=== PATIENT | female | born 1955 | race Caucasian/White ===

== ENCOUNTER 2016-09-05 05:52 | Day surgery (SDC) | payer OTHER ==
[2016-09-05] VITALS (13 sets, daily range): BP systolic 120–147; BP diastolic 80–91; PULSE 58–75; RESP 14–29; Ht 162.6 cm; Wt 58.0 kg
[~2016-09-05] VITALS: Ht 162.6 cm; Wt 58.0 kg
[~2016-09-05 05:52] MED LIST: CIPR500T4 PO; HYDR-902 PO; METR500T PO; PANT40TA4 PO
[2016-09-05 06:50] LABS: ADD SCAN DIFF NO
[2016-09-05] MEDS ORDERED: OMEP20CA16 PO (06:53)
[2016-09-05] MEDS ORDERED: LISI2.5T59 PO (06:53)
[2016-09-05] MEDS ORDERED: CEFAZOLIN 2 GM/50 ML (PMX) 50 ML IVPB SCH (07:00)
[2016-09-05] MEDS ORDERED: SOD CHLORIDE 0.9% 1,000 ML IV SCH (07:00)
[2016-09-05 07:04] LABS: BASOPHILS % 0.6 % (0.0-2.0); EOSINOPHILS # 0.2 10^3/ul (0.0-0.5); EOSINOPHILS % 3.2 % (0.0-7.0); HEMOGLOBIN 11.2 g/dl (12.0-16.0); LYMPHOCYTES # 1.8 10^3/ul (0.8-2.9); LYMPHOCYTES % 34.2 % (15.0-51.0); MEAN CORPUSCULAR HEMOGLOBIN 27.7 pg (29.0-33.0); MEAN CORPUSCULAR VOLUME 86.4 fl (82.0-101.0); MEAN PLATELET VOLUME 10.5 fl (7.4-10.4); MONOCYTE # 0.4 10^3/ul (0.3-0.9); MONOCYTES % 7.9 % (0.0-11.0); NEUTROPHIL # 2.9 10^3/ul (1.6-7.5); NEUTROPHILS % 53.9 % (39.0-77.0); PLATELET COUNT 220 10^3/UL (140-415); RED BLOOD COUNT 4.05 10^6/ul (4.20-5.40); RED CELL DISTRIBUTION WIDTH 15.4 % (11.5-14.5); WHITE BLOOD COUNT 5.3 10^3/ul (4.8-10.8)
[2016-09-05] MEDS ORDERED: BUPIVACAINE 0.25% (MPF) 30 ML INJ ONE (07:15)
[2016-09-05 07:16] LABS: INR 0.89; PARTIAL THROMBOPLASTIN TIME 31.4 Sec (25.0-35.0); PT RATIO 0.9
[2016-09-05 07:21] LABS: ALBUMIN 3.9 g/dl (3.3-4.9); ALBUMIN/GLOBULIN RATIO 1.3; BILIRUBIN,INDIRECT 0.1 mg/dl (0-1.1); BILIRUBIN,TOTAL 0.1 mg/dl (0.2-1.3); TOTAL PROTEIN 6.9 g/dl (6.1-8.1)
[2016-09-05] MEDS ORDERED: FENTAnyl 50 MCG/ML VIAL ONE (07:40)
[2016-09-05] MEDS ORDERED: SUCCINYLCHOLINE CHLORIDE 100 MG/5 ML SYG IV ONE (07:57)
[2016-09-05] MEDS ORDERED: LIDOCAINE 2% (SDV) 5 ML INJ ONE (07:57)
[2016-09-05] MEDS ORDERED: CEFAZOLIN 1 GM INJ ONE (07:57)
[2016-09-05] MEDS ORDERED: PROPOFOL 20 ML ONE (07:57)
[2016-09-05] MEDS ORDERED: ROCURONIUM 50 MG INJ ONE (07:57)
[2016-09-05 08:04] LABS: CALCIUM 9.3 mg/dl (8.4-10.2); CREATININE 0.82 mg/dl (0.44-1.00); POTASSIUM 3.9 mmol/L (3.5-5.1)
[2016-09-05] MEDS ORDERED: BACITRACIN/POLYMYXIN 28.35 GM OINT TOP ONE (08:22)
[2016-09-05] MEDS ORDERED: MEPERIDINE 25 MG INJ IV PRN (08:30)
[2016-09-05] MEDS ORDERED: METOCLOPRAMIDE 10 MG INJ IV PRN (08:30)
[2016-09-05] MEDS ORDERED: ONDANSETRON 4 MG INJ IV PRN (08:30)
[2016-09-05] MEDS ORDERED: HYDROCODONE/APAP (5/325) TAB PO ONE (08:30)
[2016-09-05] MEDS ORDERED: DIPHENHYDRAMINE 50 MG INJ IV PRN (08:30)
[2016-09-05] MEDS ORDERED: FENTAnyl 50 MCG/ML VIAL IV PRN ×2 (08:30)
[2016-09-05] MEDS ORDERED: HYDROmorphONE (0.2 MG/ML) 10ML SYG IV PRN ×3 (08:30)
[2016-09-05] MEDS ORDERED: SUGAMMADEX SODIUM 200 MG/2 ML VIAL IV ONE (08:32)
--- NOTE | 2016-09-05 08:33 | OPR ---
Date/Time of Note Date/Time of Note DATE: 09/05/16 TIME: 08:27 Operative Report Procedure Date: Sep 05, 2016 Preoperative Diagnosis posterior scalp mass x 3 Postoperative Diagnosis same Operation Performed 1. excision of posterior super scalp mass with 3 cm incision and 3 cm mass 2. excision of right posterior inferior scalp mass with 2 cm incision and 2 cm mass 3. excision of left posterior inferior scalp mass with 3 cm incision and 2 cm mass 4. localized adjacent tissue transfer with the use of skin flaps 16 sq cm defect 5. therapeutic [place] [address] Surgeon: Sharmila RUIZ Specimens superior posterior scalp mass inferior right posterior scalp mass inferior left posterior scalp mass Indications This is a 61-year-old female with 3 posterior scalp masses. She required surgical excision. Risks alternatives benefits and percent were discussed the patient. Potential complications including but not limited to bleeding infection scar alopecia and recurrence of masses were discussed the patient patient expresses understanding and consents to the operation. Procedure Description Patient is taken to the OR and prepped and draped in usual sterile fashion surgical timeout was performed IV antibiotics given. 15 blade is used to make a transverse incision over the posterior superior mass dissection cautery was carried out the mass and circumferentially excised due to tissue defect localized adjacent tissue transfer with use of skin flaps was performed multilayer closure with interrupted and running 3-0 Vicryl. Subcutaneous Marcaine is injected into the surgical site. Right posterior inferior mass is then addressed in a similar fashion. Transverse incision is made with a 15 blade. Dissection cautery was carried down to the mass was circumferentially excised. Due to tissue defect localized adjacent tissue transfer to the skin flaps was performed closures with a running 3-0 Vicryl. Therapeutic subcutaneous Marcaine is injected into this site. Attention was then paid to the left posterior inferior mass. Transverse incision is made with a 15 blade. Dissection cautery was carried out the mass and circumferentially excised. There is good hemostasis. Running 3-0 Vicryl was used due to tissue defect to close the wound. Subcutaneous Marcaine is injected therapeutically. There is good hemostasis in all surgical sites. Antibiotic ointment is applied. Sharmila RUIZ Sep 05, 2016 08:32
--- NOTE | 2016-09-05 08:39 | RADRPT ---
PROCEDURE: Chest Radiograph. CLINICAL INDICATION: Preop TECHNIQUE: Single frontal chest radiograph. COMPARISON: None available FINDINGS: The cardiomediastinal silhouette is within normal limits. No infiltrate or effusion is seen. Th e bones are intact. IMPRESSION: 1. Unremarkable chest radiograph. RPTAT: KK .Mayur Quinones MD, MD Date Time Electronically viewed and signed by .Mayur Quinones MD, on 09/05/2016 08:39 .B/
--- NOTE | 2016-09-05 21:05 | RADRPT ---
Vent Rate: 51 bpm RR Interval: 0 msec CO Interval: 122 msec QRS Duration: 82 msec QT Interval: 468 msec QTC Interval: 431 msec P-R-T [place]: 19 - 20 - 29 degrees Sinus bradycardia Otherwise normal ECG Electronically Signed By: John Damian [id number]
== END 2016-09-05 10:00 | disposition home or self-care (01) ==
LOC: SDS 05:52
PROVIDERS: ATTEND Surgery
DX: L72.11 Pilar cyst (principal); I10 Essential (primary) hypertension; E78.5 Hyperlipidemia, unspecified
CPT/HCPCS: 14021; 71010; 80053; 85025; 85610; 85730; 88307; 93005; J0690; J3010; J7999; Z7512; Z7610

== ENCOUNTER 2016-10-23 08:02 | Day surgery (SDC) | payer OTHER ==
[~2016-10-23] VITALS: Ht 157.5 cm; Wt 57.9 kg
[~2016-10-23 08:02] MED LIST changes: -CIPR500T4 PO; -HYDR-902 PO; +LISI2.5T59 PO; -METR500T PO; +OMEP20CA16 PO; -PANT40TA4 PO
[2016-10-23] MEDS ORDERED: IBUPROFEN (08:50)
[2016-10-23 08:51] VITALS: Ht 157.5 cm; Wt 57.9 kg
[2016-10-23] MEDS ORDERED: FENTAnyl 50 MCG/ML VIAL ONE (10:00)
[2016-10-23] MEDS ORDERED: MIDAZOLAM 1 MG/ML 2 ML INJ ONE ×3 (10:00→10:01)
--- NOTE | 2016-10-23 10:01 | OPPN ---
Date/Time of Note Date/Time of Note DATE: 10/23/16 TIME: 09:58 Operative Report Preoperative Diagnosis screening Postoperative Diagnosis diverticulosis hemorrhoids Operation/Procedure Performed colonoscopy Provider: MARIJA JENNINGS MD Anesthesia Type: moderate sedation Estimated blood loss: none Transfusion Required: no Specimen: none Grafts/Implants: none Complications: no MARIJA JENNINGS MD Oct 23, 2016 10:01
[2016-10-23 10:14] VITALS: BP 145/87; RESP 14
--- NOTE | 2016-10-23 10:19 | GILP ---
DATE OF PROCEDURE: 10/23/2016 PREOPERATIVE DIAGNOSIS: Screening colonoscopy. POSTOPERATIVE DIAGNOSES: 1. Colonoscopy all the way to the cecum. 2. Extensive diverticulosis of the sigmoid colon. 3. Internal hemorrhoids. 4. No colon neoplasm was identified. PROCEDURE PERFORMED: Colonoscopy. INDICATION: Ms Josefina Chen is a 61-year-old female patient who was scheduled for screening colonoscopy. The procedure and possible complications were well explained to the patient. She understood and consented to the procedure. DESCRIPTION OF PROCEDURE: Under the influence of fentanyl and Versed, the colonoscope was carefully introduced in the rectum. Under direct vision, it was advanced all the way to the cecum. FINDINGS: The patient had extensive diverticulosis of the sigmoid colon. The patient also had internal hemorrhoids. No colon neoplasm was identified. She tolerated the procedure very well. There was no complication from the procedure. At the end of procedure, she was awake with stable vital signs and she was discharged home in care of her family. IMPRESSION: Please see postop diagnoses. PLAN: Next screening colonoscopy in 10 years. Dictated By: MD ANNABELLA Bonds/sonali/nathan /Document#: [id number]
== END 2016-10-23 13:41 | disposition home or self-care (01) ==
LOC: GIL 08:02
PROVIDERS: ATTEND Internal Medicine Gastroenterology
DX: Z12.11 Encounter for screening for malignant neoplasm of colon (principal); K57.90 Diverticulosis of intestine, part unspecified, without perforation or abscess without bleeding; K64.8 Other hemorrhoids; I10 Essential (primary) hypertension
CPT/HCPCS: 45378; J2250; J3010; Z7610

== ENCOUNTER 2018-09-09 15:23 | Emergency (ER) | payer MEDICARE, OTHER ==
[~2018-09-09] VITALS: Ht 162.6 cm; Wt 57.2 kg
[~2018-09-09 15:23] MED LIST changes: +IBUPROFEN
[2018-09-09 15:47] VITALS: Ht 162.6 cm; Wt 57.2 kg
[2018-09-09] MEDS ORDERED: SOD CHLORIDE 0.9% 1,000 ML IV STA (17:12)
[2018-09-09] MEDS ORDERED: OMEP20CA16 PO (17:50)
[2018-09-09] MEDS ORDERED: LOSA25TA12 PO (17:50)
[2018-09-09] MEDS ORDERED: ALBU18HF INHALATION (17:50)
[2018-09-09] MEDS ORDERED: FLUT1AER INHALATION (17:51)
[2018-09-09] MEDS ORDERED: GABA300C16 PO (17:51)
[2018-09-09] MEDS ORDERED: ADV10050 INHALATION (17:52)
[2018-09-09] MEDS ORDERED: SOD CHLORIDE 0.9% 100 ML ONE (18:57)
[2018-09-09] MEDS ORDERED: IOHEXOL 300MG/ML 150 ML BTL ONE (18:57)
--- NOTE | 2018-09-09 18:58 | ERD ---
ER Documentation Chief Complaint Chief Complaint mid AP, rectal bleed since Sun. clinic ref to r/o diverticulitis. hx hemorr HPI This is a 63-year-old female with past medical history of hypertension and diverticulosis. The patient indicates for the past 4 days she is been having severe pain in her left lower quadrant. The pain is a sharp shooting pain. It initially started around the mid abdomen 4 days ago but has progressively worsened and moved to the left lower quadrant. The patient also indicates at the onset of her symptoms 4 days ago she noticed dark red clots coming from her rectum when attempting to have a bowel movement. Since then she noticed loose stools. However she states the rectal bleeding has subsided. Her last episode of diverticulitis was roughly 1 year ago. She stated she was unable to get in s ooner as she was out of town. She denies any weakness. ROS All systems reviewed and are negative except as per history of present illness. Medications Home Meds Reported Medications Salmeterol Xinaf-Fluticasone* (Advair*) 100/50 Diskus Inhaler, 1 INH INHALATION BID, #1 INHALER 09/09/18 Fluticasone-Vilanterol (Breo Ellipta Inhaler) 100-25 Mcg/Actuation Aer.pow.ba, 1 PUFF INHALATION DAILY, #1 INHALER 09/09/18 Gabapentin* (Gabapentin*) 300 Mg Capsule, 300 MG PO TID, #90 CAP 09/09/18 Albuterol Sulfate* (Ventolin HFA*) 18 Gm Hfa.aer.ad, 2 PUFF INHALATION Q6H, #1 INHALER 09/09/18 Losartan Potassium* (Losartan Potassium*) 25 Mg Tablet, 25 MG PO DAILY, TAB 09/09/18 Omeprazole* (Omeprazole*) 20 Mg Capsule.dr, 20 MG PO BID, #60 CAP 09/09/18 Discontinued Reported Medications [Ibuprofen] No Conflict Check 10/23/16 Lisinopril* (Lisinopril*) 2.5 Mg Tablet, 2.5 MG PO DAILY, #30 TAB 09/05/16 Omeprazole* (Omeprazole*) 20 Mg Capsule.dr, 20 MG PO DAILY, #30 CAP 09/05/16 Allergies Allergies: Coded Allergies: No Known Allergy (Unverified , 09/09/18) PMhx/Soc History of Surgery: Yes (OCCIPITAL CYST REMOVAL ) Anesthesia Reaction: No Hx Neurological Disorder: No Hx Respiratory Disorders: No Hx Cardiac Disorders: Yes (HTN) Hx Psychiatric Problems: Yes (ANXIETY) Hx Miscellaneous Medical Probl: Yes (DIVERTICULITIS) Hx Alcohol Use: No Hx Substance Use: No Hx Tobacco Use: No Smoking Status: Never smoker Physical Exam Vitals Vital Signs Date Temp Pulse Resp B/P (MAP) Pulse Ox O2 O2 Flow FiO2 Time Delivery Rate 09/09/18 66 20 164/83 99 Room Air 18:23 (110) 09/09/18 77 18 155/95 99 Room Air 17:45 (115) 09/09/18 99.1 73 16 127/84 99 15:47 (98) Physical Exam Constitutional:Well-developed. Well-nourished. HEENT:Normocephalic. Atraumatic.Pupils were equal round reactive to light. Moist mucous membranes.No tonsillar exudates. No conjunctival pallor Neck: No nuchal rigidity. No lymphadenopathy. No posterior cervical spine tenderness or step-offs. Respiratory: Not using accessory muscles of respiration.Lungs were clear to auscultation bilaterally. No rhonchi. No rales. No wheezing. Cardiovascular: Regular rate regular rhythm.No murmurs. No rubs were appreciated.S1, S2 normal. Distal pulses are palpable 2+ bilaterally. GI: Abdomen was soft. Left lower quadrant tenderness. Non Distended. No pulsatile abdominal masses or bruits. No rebound. No guarding. Bowel sounds were present and normal. Muscle skeletal: Full range of motion of both the upper and lower extremities bilaterally.Normal muscle tone.No assymetrical calf tenderness or swelling. Skin: No petechia, no purpura. No lesions on the palms or the soles of the feet. No maculopapular rash. NEURO: Patient was alert, awake, orientated x3.No facial droop. Gait observed and normal with no ataxia.Speech had regular rate and rhythm. No focal ne urological deficits. Result Diagram: 09/09/18 1724 09/09/18 1724 Results 24 hrs Laboratory Tests Test 09/09/18 17:24 White Blood Count 5.9 10^3/ul Red Blood Count 4.05 10^6/ul Hemoglobin 11.7 g/dl Hematocrit 36.7 % Mean Corpuscular Volume 90.6 fl Mean Corpuscular Hemoglobin 28.9 pg Mean Corpuscular Hemoglobin Concent 31.9 g/dl Red Cell Distribution Width 14.7 % Platelet Count 238 10^3/UL Mean Platelet Volume 9.8 fl Immature Granulocytes % 0.300 % Neutrophils % 49.9 % Lymphocytes % 40.3 % Monocytes % 7.3 % Eosinophils % 1.7 % Basophils % 0.5 % Nucleated Red Blood Cells % 0.0 /100WBC Immature Granulocytes # 0.020 10^3/ul Neutrophils # 2.9 10^3/ul Lymphocytes # 2.4 10^3/ul Monocytes # 0.4 10^3/ul Eosinophils # 0.1 10^3/ul Basophils # 0.0 10^3/ul Nucleated Red Blood Cells # 0.0 10^3/ul Prothrombin Time 12.0 Sec Prothrombin Time Ratio 0.9 INR International Normalized Ratio 0.88 Activated Partial Thromboplast Time 31.8 Sec Sodium Level 141 mmol/L Potassium Level 3.8 mmol/L Chloride Level 105 mmol/L Carbon Dioxide Level 27 mmol/L Anion Gap 9 Blood Urea Nitrogen 8 mg/dl Creatinine 0.81 mg/dl Est Glomerular Filtrat Rate mL/min > 60 mL/min Glucose Level 93 mg/dl Calcium Level 9.9 mg/dl Total Bilirubin 0.4 mg/dl Direct Bilirubin 0.00 mg/dl Indirect Bilirubin 0.4 mg/dl Aspartate Amino Transf (AST/SGOT) 33 IU/L Alanine Aminotransferase (ALT/SGPT) 23 IU/L Alkaline Phosphatase 94 IU/L Troponin I < 0.012 ng/ml Total Protein 8.3 g/dl Albumin 4.6 g/dl Globulin 3.70 g/dl Albumin/Globulin Ratio 1.24 Amylase Level 82 U/L Lipase 72 U/L Current Medications Medications Dose Sig/Kimberly Start Time Status Last (Trade) Ordered Route PRN Stop Time Admin Dose Reason Admin Sodium 1,000 ml @ Q1H STAT 09/09/18 DC 09/09/18 Chloride 1,000 mls/hr IV 17:12 17:40 09/09/18 18:11 IV Flush 10 ml STK-MED 09/09/18 DC (NS 10 ml) ONCE .ROUTE 18:57 09/09/18 18:58 Sodium 100 ml @ ud STK-MED 09/09/18 DC Chloride ONCE .ROUTE 18:57 09/09/18 18:58 Iohexol 150 ml STK-MED 09/09/18 DC (Omnipaque ONCE .ROUTE 18:57 300mg/ ml) 09/09/18 18:58 Morphine 4 mg ONCE STAT 09/09/18 DC 09/09/18 Sulfate IV 20:20 20:28 (morphine) 09/09/18 20:21 Ondansetron 4 mg ONCE STAT 09/09/18 DC 09/09/18 HCl (Zofran IV 20:20 20:29 Inj) 09/09/18 20:21 Procedures/MDM This patient presented to the emergency department with abdominal pain and was seen and evaluated by myself. My differential diagnosis included but was not limited to abdominal aortic aneurysm, appendicitis, pancreatitis, perforated peptic ulcer, perforated viscus, Boerhaaves syndrome or visceral pain such as diverticulitis, DKA, esophagitis, hepatitis or bowel obstruction. The patient was placed on a through operator, continuous pulse oximetry, and IV access was established by nursing staff. The patient was given intravenous morphine and Zofran for analgesia control. I obtained a 12-lead EKG tracing to rule out for atypical myocardial infarction. 12 Lead EKG tracing ordered and reviewed by myself showed: Sinus bradycardia 59 bpm and no arrhythmia. AR interval normal. QRS duration normal. No ST segment elevation. PVCs. This was read as a demand pacemaker pattern however the patient has no pacemaker and I did not notice pacemaker spikes on the EKG No ST segment depression. No changes consistent with acute ischemia. The patient had a CT scan of her abdomen performed which was reviewed by the radiologist as well as myself and indicated the following: Diverticulosis colon, extensive diverticula sigmoid colon with no CT evidence of acute diverticulitis Fatty liver Unchanged left kidney cyst. The patient's hemoglobin was 11.7. The patient's pain was controlled with intravenous morphine and Zofran. The patient's pain had completely resolved. The patient was discharged home in fair condition. They were instructed to return to the emergency department at any time if there was any worsening of their condition. The patient stated they would follow up with their PCP in the next 24-48 hours to initiate a suitable medication regimen under the care of their PCP as well as to allow their PCP to monitor any drug reactions. The patient was discharged home with prescriptions after they gave informed consent to the new medication. They were also fully informed by myself on the adverse effects and adverse drug interactions in order to provide adequate safeguards to prevent possible adverse reactions to medications. Departure Diagnosis: Primary Impression: Diverticulosis Condition: SURESH Galvan MD Sep 09, 2018 18:58
[2018-09-09] MEDS ORDERED: ONDANSETRON 4 MG INJ IV STA (20:20)
[2018-09-09] MEDS ORDERED: morphine 4 MG/ML VIAL IV STA (20:20)
[2018-09-09] MEDS ORDERED: HYDR-4011 PO (21:23)
[2018-09-09] MEDS ORDERED: DOCU-144 PO (21:23)
[2018-09-09 21:44] VITALS: BP 145/94; PULSE 73; RESP 16
== END 2018-09-09 21:46 | disposition home or self-care (01) ==
LOC: E/R 15:23
DX: K57.30 Diverticulosis of large intestine without perforation or abscess without bleeding (principal); I10 Essential (primary) hypertension
CPT/HCPCS: 74177; 80053; 82150; 83690; 84484; 85025; 85610; 85730; 93005; J2270; J2405; J7030; Q9967; 96374; 96375